=== PATIENT | female | born 1985 | race Caucasian/White ===

== ENCOUNTER 2018-10-08 22:14 | Emergency (ER) | payer BC ==
[~2018-10-08] VITALS: Ht 170.2 cm; Wt 82.7 kg
[2018-10-08 22:30] VITALS: BP 144/100
[2018-10-08] MEDS ORDERED: dexamethasone sod phosphate 10mg/ml inj PO STA (23:59)
== END 2018-10-09 00:15 | disposition home or self-care (01) ==
LOC: ER 22:14
DX: L27.0 Generalized skin eruption due to drugs and medicaments taken internally (principal); T37.0X5A Adverse effect of sulfonamides, initial encounter; Z88.1 Allergy status to other antibiotic agents; Y92.89 Other specified places as the place of occurrence of the external cause
CPT/HCPCS: 99282; J1100